=== PATIENT | female | born 1965 | race Caucasian/White ===

== ENCOUNTER 2021-02-13 03:47 | Emergency (ER) | payer MEDICAID ==
--- NOTE | 2021-02-13 03:56 | EDM.PDOC ---
ED HPI GENERAL MEDICAL PROBLEM - General Stated Complaint: POSSIBLE RIGHT FOOT FRACTURE Time Seen by Provider: 02/13/21 03:48 - History of Present Illness INITIAL COMMENTS - FREE TEXT/NARRATIVE: History of present illness: [] Patient tripped over something when she was watering her plants this morning. She injured the right foot and left shoulder. She does not have much pain on range of motion of the left shoulder and does not feel like it significant. She has significant pain in the right foot and was splinted by EMS after 100 mcg of fentanyl were given Review of systems: As per history of present illness and below otherwise all systems reviewed and negative. Past medical history: As per history of present illness and as reviewed below otherwise noncontributory. Surgical history: As per history of present illness and as reviewed below otherwise noncontributory. Social history: No reported history of drug or alcohol abuse. Family history: As per history of present illness and as reviewed below otherwise noncontributory. Physical exam: Constitutional - well developed, well-nourished and in no acute distress HEENT - normocephalic, no evidence of trauma - external nose and mouth normal - no mass in neck and no JVD - mucosae moist EYES - full EOM, PERRL, no icterus - no evidence of inflammation, injection, or drainage Respiratory - no respiratory distress, equal bilateral expansion GI - abdomen soft without distension or organomegaly -s - no guard or rebound Musculoskeletal tenderness and swelling between the ankle and the foot and the medial side of the right lower extremity no gross deformity of long bones or joints - no tenderness, swelling or edema Neurologic - Alert and oriented times four - CN II-XII grossly intact - motor sensory and coordination symmetrically normal Psychiatric - appropriate mood and affect with normal thought content Hematologic - No petechiae or purpura - mucosa appropriate color and sclera not pale - normal nail bed color and refill Integument -bruising on the medial right ankle. No rash or evidence of trauma - normal turgor Diagnostics: [] Therapeutics: [] Impression: [] Plan: [] Definitive disposition and diagnosis as appropriate pending reevaluation and review of above. - Related Data Allergies Allergy/AdvReac Type Severity Reaction Status Date / Time codeine Allergy Itching Verified 10/02/15 03:33 Penicillins Allergy Cannot Verified 10/02/15 03:33 Remember Sulfa (Sulfonamide Allergy Rash Verified 10/02/15 03:33 Antibiotics) Liquid Skin Allergy Swelling Uncoded 10/02/15 03:33 Home Meds: Home Meds Acetaminophen/Caffeine [Excedrin Tension Headache] 1 tab PO ASDIRECTED PRN 09/29/15 [History] Aspirin [Halfprin] 81 mg PO ONETIME 09/29/15 [History] Past Medical History HEENT History: Reports: None Cardiovascular History: Reports: Angina, Hypertension Respiratory History: Reports: None Gastrointestinal History: Reports: GERD Genitourinary History: Reports: None, UTI, Recurrent [employer]IST History: Reports: Musculoskeletal History: Reports: Back Pain, Chronic, Fracture Neurological History: Reports: Concussion, Head Trauma, Migraines Psychiatric History: Reports: Anxiety, Depression, Panic Attack Endocrine/Metabolic History: Reports: None Hematologic History: Reports: None Immunologic History: Reports: None Oncologic (Cancer) History: Reports: None Dermatologic History: Reports: Cellulitis Other Dermatologic History: na - Infectious Disease History Infectious Disease History: Reports: Chicken Pox - Past Surgical History HEENT Surgical History: Reports: Oral Surgery, Tonsillectomy Social & Family History - Family History Family Medical History: No Pertinent Family History ED ROS GENERAL - Review of Systems Review Of Systems: Comprehensive ROS is negative, except as noted in HPI. ED EXAM, GENERAL - Physical Exam Exam: See Below Free Text/Narrative:: My physical exam is in the HPI Course - Vital Signs Text/Narrative:: The patient's x-rays were normal. Is a prescription will be necessary because she needs to reduce the activity so that she does not have a worsening of her sprain. This will be necessary for 2 weeks. Last Recorded V/S: Last Vital Signs Temp 36.2 C 02/13/21 03:59 Pulse 65 02/13/21 03:59 Resp 20 02/13/21 03:59 BP 135/48 L 02/13/21 03:59 Pulse Ox 98 02/13/21 03:59 - Orders/Labs/Meds Orders: Active Orders 24 hr Category Date Time Status DME for Discharge [COMM] Stat Oth 02/13/21 04:36 Ordered Departure - Departure Time of Disposition: 04:38 Disposition: Home, Self-Care 01 Condition: Good Clinical Impression: Right ankle sprain - Discharge Information Instructions: Ankle Sprain, [id number] Additional Instructions: You should immobilize the ankle with the Jimmy wrap until you have painless range of motion. Follow-up with Ortho if you do not obtain painless rate of motion gradually over time. Return if worse. [id number] pain medicine is advised and this could include Tylenol ibuprofen or naproxen. [facility] [address], [address] [place] [address] The following information is given to patients seen in the emergency department who are being discharged to home. This information is to outline your options for follow-up care. We provide all patients seen in our emergency department with a follow-up referral. The need for follow-up, as well as the timing and circumstances, are variable depending upon the specifics of your emergency department visit. If you don't have a primary care physician on staff, we will provide you with a referral. We always advise you to contact your personal physician following an emergency department visit to inform them of the circumstance of the visit and for follow-up with them and/or the need for any referrals to a consulting specialist. The emergency department will also refer you to a specialist when appropriate. This referral assures that you have the opportunity for follow-up care with a specialist. All of these measure are taken in an effort to provide you with optimal care, which includes your follow-up. Under all circumstances we always encourage you to contact your private physician who remains a resource for coordinating your care. When calling for follow-up care, please make the office aware that this follow-up is from your recent emergency room visit. If for any reason you are refused follow-up, please contact the [facility] Emergency Department at and asked to speak to the emergency department charge nurse. Sepsis Event Note (ED) - Focused Exam Vital Signs: Vital Signs Temp Pulse Resp BP Pulse Ox 02/13/21 03:59 36.2 C 65 20 135/48 L 98 - My Orders Last 24 Hours: My Active Orders 02/13/21 04:36 DME for Discharge [COMM] Stat - Assessment/Plan Last 24 Hours: My Active Orders 02/13/21 04:36 DME for Discharge [COMM] Stat
[2021-02-13 04:05] VITALS: BP 135/48; PULSE 65
--- NOTE | 2021-02-13 04:36 | CR ---
INDICATION: Ankle injury, pain TECHNIQUE: Ankle radiograph 3 views right COMPARISON: None FINDINGS: Bone: No acute fractures or aggressive bone lesions are identified. Joint: The ankle mortise joint and the visualized hindfoot joints are unremarkable in appearance. No significant ankle effusion is seen. Soft tissue: The Kager fat pad and the Achilles` tendon is normal in appearance. No radiopaque foreign bodies are seen. IMPRESSION: 1. No acute osseous injuries or abnormalities are noted. Dictated by: Atul Francis MD @ 02/13/2021 04:34:58 (Electronically Signed)
--- NOTE | 2021-02-13 04:36 | CR ---
INDICATION: Foot injury, pain TECHNIQUE: Foot radiograph 3 views right COMPARISON: None FINDINGS: Bone: No acute fractures or aggressive bone lesions are identified. Joint: The visualized hindfoot, midfoot, and forefoot joints are unremarkable in appearance. No significant ankle effusion is seen. Soft tissue: Unremarkable. No radiopaque foreign bodies are seen. IMPRESSION: 1. No acute osseous injuries or abnormalities are noted. Dictated by: Atul Francis MD @ 02/13/2021 04:34:35 (Electronically Signed)
[2021-02-13] MEDS ORDERED: Ketorolac 30 MG/ML SDV IM ONE (04:44)
== END 2021-02-13 05:16 | disposition home or self-care (01) ==
LOC: MW.ED 03:47
DX: S93.401A Sprain of unspecified ligament of right ankle, initial encounter (principal); Z79.82 Long term (current) use of aspirin; Z88.5 Allergy status to narcotic agent; Z88.0 Allergy status to penicillin; Z88.2 Allergy status to sulfonamides; Z91.048 Other nonmedicinal substance allergy status; W01.0XXA Fall on same level from slipping, tripping and stumbling without subsequent striking against object, initial encounter
CPT/HCPCS: 73610; 73630; 96372; 99283; J1885

== ENCOUNTER 2021-06-15 12:10 | Emergency (ER) | payer MEDICAID ==
--- NOTE | 2021-06-15 12:40 | EDM.PDOC ---
ED HPI GENERAL MEDICAL PROBLEM - General Chief Complaint: General Stated Complaint: STOMACH ISSUES FEVER Time Seen by Provider: 06/15/21 12:13 Source of Information: Reports: Patient History Limitations: Reports: No Limitations - History of Present Illness INITIAL COMMENTS - FREE TEXT/NARRATIVE: 55-year-old female presents with generalized weakness, diffuse myalgia, headache, decreased appetite since last Sunday. She states she has been in bed since Sunday night too weak to get out of bed. She does note fevers and chills, nausea, vomiting, abdominal pain, decreased urine output. She denies sore throat, neck pain or stiffness, cough, dysuria or urinary frequency. She denies drug use. ROS: A 10-point review of systems, other than pertinent positives and negatives as stated per HPI, is otherwise negative Past medical history: No additional pertinent history Past Surgical history: No additional pertinent history Social history: No additional pertinent history Family history: No additional pertinent history PHYSICAL EXAM General: AOx4, GCS = 15, mild distress HEENT: dry mucous membrane Neck: supple, no meningismus, no Kernig or Brudzinski Cardiac: S1S2 RRR Respiratory: CTAB, no crackles or rales, no wheezing Abdomen: Soft, right upper quadrant tender, no periumbilical or right lower quadrant or McBurney tenderness rebound or guarding, nondistended, no pulsatile mass. Back: nontender to C/T/L-spine, no bilateral CVAT Musculoskeletal: NVI distally, no deformity Neuro: No focal deficits Generalized Pain Score (Numeric/FACES): 8 - Related Data Allergies Allergy/AdvReac Type Severity Reaction Status Date / Time codeine Allergy Itching Verified 06/15/21 12:25 Penicillins Allergy Cannot Verified 06/15/21 12:25 Remember Sulfa (Sulfonamide Allergy Rash Verified 06/15/21 12:25 Antibiotics) Liquid Skin Allergy Swelling Uncoded 10/02/15 03:33 Home Meds: Home Meds Acetaminophen/Caffeine [Excedrin Tension Headache] 1 tab PO ASDIRECTED PRN 09/29/15 [History] Aspirin [Halfprin] 81 mg PO ONETIME 09/29/15 [History] Acetaminophen/oxyCODONE [Percocet 325-5 MG] 1 each PO Q6H PRN #12 tab 06/15/21 [Rx] Ondansetron [Zofran ODT] 4 mg PO Q6H PRN #12 tab.dis 06/15/21 [Rx] Past Medical History HEENT History: Reports: None Cardiovascular History: Reports: Angina, Hypertension Respiratory History: Reports: None Gastrointestinal History: Reports: GERD Genitourinary History: Reports: None, UTI, Recurrent 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: Musculoskeletal History: Reports: Back Pain, Chronic, Fracture Neurological History: Reports: Concussion, Head Trauma, Migraines Psychiatric History: Reports: Anxiety, Depression, Panic Attack Endocrine/Metabolic History: Reports: None Hematologic History: Reports: None Immunologic History: Reports: None Oncologic (Cancer) History: Reports: None Dermatologic History: Reports: Cellulitis Other Dermatologic History: na - Infectious Disease History Infectious Disease History: Reports: Chicken Pox - Past Surgical History HEENT Surgical History: Reports: Oral Surgery, Tonsillectomy Female Surgical History: Reports: Hysterectomy Social & Family History - Family History Family Medical History: No Pertinent Family History - Tobacco Use Tobacco Use Status *Q: Current Some Day Tobacco User Years of Tobacco use: 30 Packs/Tins Daily: 1 - Caffeine Use Caffeine Use: Reports: Coffee - Recreational Drug Use Recreational Drug Use: No ED ROS GENERAL - Review of Systems Review Of Systems: See Below (see dictation) ED EXAM, GENERAL - Physical Exam Exam: See Below (see dictation) #1 Interpretation EKG Interpretation Comments: Heart rate = 67 bpm, normal sinus rhythm, normal QRS interval, T wave II, III, AVF, V1-V4 (new compared to 2015), no STEMI. EKG and rhythm strip interpreted by me at 1305 Course - Vital Signs Last Recorded V/S: Last Vital Signs Temp 96.9 F 06/15/21 12:21 Pulse 82 06/15/21 17:20 Resp 16 06/15/21 17:20 BP 104/46 L 06/15/21 17:20 Pulse Ox 97 06/15/21 17:20 - Orders/Labs/Meds Orders: Active Orders 24 hr Category Date Time Status Cardiac Monitoring [RC] . DIRECTED Care 06/15/21 12:55 Active Communication Order [RC] STAT Care 06/15/21 14:29 Active Pulse Oximetry [RC] ASDIRECTED Care 06/15/21 12:55 Active NPO [Nothing Per Oral Diet] [DIET] Diet 06/15/21 Dinner Active CULTURE BLOOD [BC] Stat Lab 06/15/21 14:25 Received CULTURE BLOOD [BC] Stat Lab 06/15/21 14:32 Received PROCALCITONIN [REF] Stat Lab 06/15/21 12:55 Ordered Morphine Med 06/15/21 18:13 Once 4 mg IVPUSH ONETIME ONE Ondansetron [Zofran] Med 06/15/21 18:13 Once 4 mg IVPUSH ONETIME ONE Pantoprazole [ProTONIX IV] 40 mg Med 06/15/21 18:13 Ordered Sodium Chloride 0.9% [Normal Saline] 20 ml IVPUSH ONETIME Potassium Chloride Med 06/15/21 18:13 Once 40 meq PO ONETIME ONE Sodium Chloride 0.9% [Saline Flush] Med 06/15/21 12:55 Active 10 ml FLUSH ASDIRECTED PRN Sodium Chloride 0.9% [Saline Flush] Med 06/15/21 12:55 Active 2.5 ml FLUSH ASDIRECTED PRN Blood Culture x2 Reflex Set [OM.PC] Stat Oth 06/15/21 12:56 Ordered Isolation [COMM] Routine Oth 06/15/21 12:56 Active Saline Lock Insert [OM.PC] Stat Oth 06/15/21 12:55 Ordered Medication Orders Sodium Chloride (Sodium Chloride 0.9% 10 Ml Syringe) 10 ml FLUSH ASDIRECTED PRN PRN Reason: Keep Vein Open Last Admin: 06/15/21 14:17 Dose: 10 ml Documented by: RICHELLE Sodium Chloride (Sodium Chloride 0.9% 2.5 Ml Syringe) 2.5 ml FLUSH ASDIRECTED PRN PRN Reason: Keep Vein Open Last Admin: 06/15/21 14:17 Dose: 2.5 ml Documented by: RICHELLE Labs: Laboratory Tests 06/15/21 06/15/21 06/15/21 Range/Units 14:06 14:06 14:06 WBC 5.17 (4.0-11.0) K/uL RBC 4.95 (4.30-5.90) M/uL Hgb 15.3 (12.0-16.0) g/dL Hct 42.6 (36.0-46.0) % MCV 86.1 (80.0-98.0) fL MCH 30.9 (27.0-32.0) pg MCHC 35.9 (31.0-37.0) g/dL RDW Std Deviation 41.3 (28.0-62.0) fl RDW Coeff of Pina 13 (11.0-15.0) % Plt Count 186 (150-400) K/uL MPV 10.60 (7.40-12.00) fL Neut % (Auto) 64.4 (48.0-80.0) % Lymph % (Auto) 26.1 (16.0-40.0) % Sutton % (Auto) 9.5 (0.0-15.0) % Eos % (Auto) 0.0 (0.0-7.0) % Baso % (Auto) 0.0 (0.0-1.5) % Neut # (Auto) 3.3 (1.4-5.7) K/uL Lymph # (Auto) 1.4 (0.6-2.4) K/uL Sutton # (Auto) 0.5 (0.0-0.8) K/uL Eos # (Auto) 0.0 (0.0-0.7) K/uL Baso # (Auto) 0.0 (0.0-0.1) K/uL Nucleated RBC % 0.0 /100WBC Nucleated RBCs # 0 K/uL ESR 36 H (0-29) mm/hr INR Sodium 135 L (136-145) mmol/L Potassium 3.0 L (3.5-5.1) mmol/L Chloride 93 L (98-107) mmol/L Carbon Dioxide 25.4 (21.0-32.0) mmol/L BUN 18 (7.0-18.0) mg/dL Creatinine 0.7 (0.6-1.0) mg/dL Est Cr Clr Drug Dosing 63.49 mL/min Estimated GFR (MDRD) > 60.0 ml/min Glucose 119 H (74-106) mg/dL Lactic Acid (0.4-2.0) mmol/L Calcium 8.3 L (8.5-10.1) mg/dL Phosphorus 2.7 (2.6-4.7) mg/dL Magnesium 2.0 (1.8-2.4) mg/dL Total Bilirubin 0.3 (0.2-1.0) mg/dL AST 30 (15-37) IU/L ALT 28 (14-63) IU/L Alkaline Phosphatase 88 (46-116) U/L Creatine Kinase 115 (26-308) U/L Troponin I < 0.050 (0.000-0.056) ng/mL C-Reactive Protein 9.60 H (0.00-0.90) mg/dL Total Protein 7.2 (6.4-8.2) g/dL Albumin 3.2 L (3.4-5.0) g/dL Globulin 4.0 (2.6-4.0) g/dL Albumin/Globulin Ratio 0.8 L (0.9-1.6) Lipase 53 L (73-393) U/L Urine Color Urine Appearance Urine pH (5.0-8.0) Ur Specific [place] (1.001-1.035) Urine Protein (NEGATIVE) mg/dL Urine Glucose (UA) (NEGATIVE) mg/dL Urine Ketones (NEGATIVE) mg/dL Urine Occult Blood (NEGATIVE) Urine Nitrite (NEGATIVE) Urine Bilirubin (NEGATIVE) Urine Urobilinogen (<2.0) EU/dL Ur Leukocyte Esterase (NEGATIVE) Urine RBC (0-2/HPF) Urine WBC (0-5/HPF) Ur Epithelial Cells (NONE-FEW) Urine Bacteria (NEGATIVE) Urine HCG, Qual (NEGATIVE) Urine Opiates Screen (NEGATIVE) Ur Oxycodone Screen (NEGATIVE) Urine Methadone Screen (NEGATIVE) Ur Barbiturates Screen (NEGATIVE) Ur Phencyclidine Scrn (NEGATIVE) Ur Amphetamine Screen (NEGATIVE) U Methamphetamines Scrn (NEGATIVE) U Benzodiazepines Scrn (NEGATIVE) U Cocaine Metab Screen (NEGATIVE) U Marijuana (THC) Screen (NEGATIVE) 06/15/21 06/15/21 06/15/21 Range/Units 14:25 14:57 15:35 WBC (4.0-11.0) K/uL RBC (4.30-5.90) M/uL Hgb (12.0-16.0) g/dL Hct (36.0-46.0) % MCV (80.0-98.0) fL MCH (27.0-32.0) pg MCHC (31.0-37.0) g/dL RDW Std Deviation (28.0-62.0) fl RDW Coeff of Pina (11.0-15.0) % Plt Count (150-400) K/uL MPV (7.40-12.00) fL Neut % (Auto) (48.0-80.0) % Lymph % (Auto) (16.0-40.0) % Sutton % (Auto) (0.0-15.0) % Eos % (Auto) (0.0-7.0) % Baso % (Auto) (0.0-1.5) % Neut # (Auto) (1.4-5.7) K/uL Lymph # (Auto) (0.6-2.4) K/uL Sutton # (Auto) (0.0-0.8) K/uL Eos # (Auto) (0.0-0.7) K/uL Baso # (Auto) (0.0-0.1) K/uL Nucleated RBC % /100WBC Nucleated RBCs # K/uL ESR (0-29) mm/hr INR 1.06 Sodium (136-145) mmol/L Potassium (3.5-5.1) mmol/L Chloride (98-107) mmol/L Carbon Dioxide (21.0-32.0) mmol/L BUN (7.0-18.0) mg/dL Creatinine (0.6-1.0) mg/dL Est Cr Clr Drug Dosing mL/min Estimated GFR (MDRD) ml/min Glucose (74-106) mg/dL Lactic Acid 1.9 (0.4-2.0) mmol/L Calcium (8.5-10.1) mg/dL Phosphorus (2.6-4.7) mg/dL Magnesium (1.8-2.4) mg/dL Total Bilirubin (0.2-1.0) mg/dL AST (15-37) IU/L ALT (14-63) IU/L Alkaline Phosphatase (46-116) U/L Creatine Kinase (26-308) U/L Troponin I (0.000-0.056) ng/mL C-Reactive Protein (0.00-0.90) mg/dL Total Protein (6.4-8.2) g/dL Albumin (3.4-5.0) g/dL Globulin (2.6-4.0) g/dL Albumin/Globulin Ratio (0.9-1.6) Lipase (73-393) U/L Urine Color YELLOW Urine Appearance CLEAR Urine pH 6.5 (5.0-8.0) Ur Specific [place] 1.010 (1.001-1.035) Urine Protein TRACE H (NEGATIVE) mg/dL Urine Glucose (UA) NEGATIVE (NEGATIVE) mg/dL Urine Ketones >=80 (NEGATIVE) mg/dL Urine Occult Blood MODERATE H (NEGATIVE) Urine Nitrite NEGATIVE (NEGATIVE) Urine Bilirubin NEGATIVE (NEGATIVE) Urine Urobilinogen 0.2 (<2.0) EU/dL Ur Leukocyte Esterase NEGATIVE (NEGATIVE) Urine RBC 1-5 (0-2/HPF) Urine WBC 0-1 (0-5/HPF) Ur Epithelial Cells RARE (NONE-FEW) Urine Bacteria FEW (NEGATIVE) Urine HCG, Qual (NEGATIVE) Urine Opiates Screen (NEGATIVE) Ur Oxycodone Screen (NEGATIVE) Urine Methadone Screen (NEGATIVE) Ur Barbiturates Screen (NEGATIVE) Ur Phencyclidine Scrn (NEGATIVE) Ur Amphetamine Screen (NEGATIVE) U Methamphetamines Scrn (NEGATIVE) U Benzodiazepines Scrn (NEGATIVE) U Cocaine Metab Screen (NEGATIVE) U Marijuana (THC) Screen (NEGATIVE) 06/15/21 06/15/21 Range/Units 15:35 15:35 WBC (4.0-11.0) K/uL RBC (4.30-5.90) M/uL Hgb (12.0-16.0) g/dL Hct (36.0-46.0) % MCV (80.0-98.0) fL MCH (27.0-32.0) pg MCHC (31.0-37.0) g/dL RDW Std Deviation (28.0-62.0) fl RDW Coeff of Pina (11.0-15.0) % Plt Count (150-400) K/uL MPV (7.40-12.00) fL Neut % (Auto) (48.0-80.0) % Lymph % (Auto) (16.0-40.0) % Sutton % (Auto) (0.0-15.0) % Eos % (Auto) (0.0-7.0) % Baso % (Auto) (0.0-1.5) % Neut # (Auto) (1.4-5.7) K/uL Lymph # (Auto) (0.6-2.4) K/uL Sutton # (Auto) (0.0-0.8) K/uL Eos # (Auto) (0.0-0.7) K/uL Baso # (Auto) (0.0-0.1) K/uL Nucleated RBC % /100WBC Nucleated RBCs # K/uL ESR (0-29) mm/hr INR Sodium (136-145) mmol/L Potassium (3.5-5.1) mmol/L Chloride (98-107) mmol/L Carbon Dioxide (21.0-32.0) mmol/L BUN (7.0-18.0) mg/dL Creatinine (0.6-1.0) mg/dL Est Cr Clr Drug Dosing mL/min Estimated GFR (MDRD) ml/min Glucose (74-106) mg/dL Lactic Acid (0.4-2.0) mmol/L Calcium (8.5-10.1) mg/dL Phosphorus (2.6-4.7) mg/dL Magnesium (1.8-2.4) mg/dL Total Bilirubin (0.2-1.0) mg/dL AST (15-37) IU/L ALT (14-63) IU/L Alkaline Phosphatase (46-116) U/L Creatine Kinase (26-308) U/L Troponin I (0.000-0.056) ng/mL C-Reactive Protein (0.00-0.90) mg/dL Total Protein (6.4-8.2) g/dL Albumin (3.4-5.0) g/dL Globulin (2.6-4.0) g/dL Albumin/Globulin Ratio (0.9-1.6) Lipase (73-393) U/L Urine Color Urine Appearance Urine pH (5.0-8.0) Ur Specific [place] (1.001-1.035) Urine Protein (NEGATIVE) mg/dL Urine Glucose (UA) (NEGATIVE) mg/dL Urine Ketones (NEGATIVE) mg/dL Urine Occult Blood (NEGATIVE) Urine Nitrite (NEGATIVE) Urine Bilirubin (NEGATIVE) Urine Urobilinogen (<2.0) EU/dL Ur Leukocyte Esterase (NEGATIVE) Urine RBC (0-2/HPF) Urine WBC (0-5/HPF) Ur Epithelial Cells (NONE-FEW) Urine Bacteria (NEGATIVE) Urine HCG, Qual NEGATIVE (NEGATIVE) Urine Opiates Screen NEGATIVE (NEGATIVE) Ur Oxycodone Screen NEGATIVE (NEGATIVE) Urine Methadone Screen NEGATIVE (NEGATIVE) Ur Barbiturates Screen NEGATIVE (NEGATIVE) Ur Phencyclidine Scrn NEGATIVE (NEGATIVE) Ur Amphetamine Screen NEGATIVE (NEGATIVE) U Methamphetamines Scrn NEGATIVE (NEGATIVE) U Benzodiazepines Scrn NEGATIVE (NEGATIVE) U Cocaine Metab Screen NEGATIVE (NEGATIVE) U Marijuana (THC) Screen POSITIVE (NEGATIVE) Meds: Medications Generic Name Dose Route Start Last Admin Trade Name Freq PRN Reason Stop Dose Admin Sodium Chloride 10 ml 06/15/21 12:55 06/15/21 14:17 Sodium Chloride 0.9% 10 Ml Syringe FLUSH 10 ml ASDIRECTED PRN Administration Keep Vein Open Sodium Chloride 2.5 ml 06/15/21 12:55 06/15/21 14:17 Sodium Chloride 0.9% 2.5 Ml Syringe FLUSH 2.5 ml ASDIRECTED PRN Administration Keep Vein Open Discontinued Medications Generic Name Dose Route Start Last Admin Trade Name Freq PRN Reason Stop Dose Admin Lactated Ringer's 1,000 mls @ 999 mls/hr 06/15/21 12:55 06/15/21 14:05 Ringers, Lactated IV 06/15/21 13:55 999 mls/hr .BOLUS ONE Administration Ketorolac Tromethamine 30 mg 06/15/21 16:17 06/15/21 16:26 Ketorolac 30 Mg/Ml Sdv IVPUSH 06/15/21 16:18 30 mg ONETIME ONE Administration Ondansetron HCl 4 mg 06/15/21 12:55 06/15/21 14:14 Ondansetron 4 Mg/2 Ml Sdv IVPUSH 06/15/21 12:56 4 mg ONETIME ONE Administration Potassium Chloride 40 meq 06/15/21 16:17 06/15/21 16:25 Potassium Chloride 10% 20 Meq/15 Ml Soln 30 Ml Ud Cup PO 06/15/21 16:18 40 meq ONETIME ONE Administration - Re-Assessments/Exams Free Text/Narrative Re-Assessment/Exam: 06/15/21 18:14 Patient reexamined, still exhibiting right upper quadrant tenderness despite ultrasound and MRCP report. Blood work did not demonstrate elevations to T bili and alk phos, Case discussed with Dr. Morales, she recommends outpatient follow- up after pain control in the ED. She wants the patient follow-up of her for outpatient HIDA scan. Patient just vomited her potassium repletion. Will reorder IV Zofran, morphine, Protonix and 40 mEQ KCl PO. Departure - Departure Time of Disposition: 18:57 Disposition: Home, Self-Care 01 Condition: Fair Clinical Impression: Hypokalemia, Abdominal pain, Vomiting - Discharge Information *PRESCRIPTION DRUG MONITORING PROGRAM REVIEWED*: Not Applicable *COPY OF PRESCRIPTION DRUG MONITORING REPORT IN PATIENT CORIE: Not Applicable Prescriptions: Acetaminophen/oxyCODONE [Percocet 325-5 MG] 1 each PO Q6H PRN #12 tab PRN Reason: Pain (Moderate 4-6) Ondansetron [Zofran ODT] 4 mg PO Q6H PRN #12 tab.dis PRN Reason: Vomiting Instructions: Hypokalemia, Abdominal Pain, Adult, [id number] Referrals: Yelena Jean MD [Physician] - 1 Day (For scheduling for outpatient HIDA scan.) Forms: ED Department Discharge Additional Instructions: The need for follow-up, as well as the timing and circumstances, are variable depending upon the specifics of your emergency department visit. If you don't have a primary care physician on staff, we will provide you with a referral. We always advise you to contact your personal physician following an emergency department visit to inform them of the circumstance of the visit and for follow-up with them and/or the need for any referrals to a consulting specialist. The emergency department will also refer you to a specialist when appropriate. This referral assures that you have the opportunity for follow-up care with a specialist. All of these measure are taken in an effort to provide you with optimal care, which includes your follow-up. Under all circumstances we always encourage you to contact your private physician who remains a resource for coordinating your care. When calling for follow-up care, please make the office aware that this follow-up is from your recent emergency room visit. If for any reason you are refused follow-up, please contact the [facility] Emergency Department at and asked to speak to the emergency department charge nurse. Please schedule a follow-up appointment with Dr. Yelena Lin tomorrow. If you do not have a primary care doctor, please follow up with the clinics below within 3-5 days. [facility] [address] [place] [id number] [facility] [address] [place] [id number] Sepsis Event Note (ED) - Focused Exam Vital Signs: Vital Signs Temp Pulse Resp BP Pulse Ox 06/15/21 17:20 82 16 104/46 L 97 06/15/21 16:30 73 18 130/52 L 98 06/15/21 15:23 68 18 117/60 96 06/15/21 14:17 69 117/60 98 06/15/21 12:21 96.9 F 74 18 128/60 97 - My Orders Last 24 Hours: My Active Orders 06/15/21 12:55 Cardiac Monitoring [RC] . DIRECTED Pulse Oximetry [RC] ASDIRECTED PROCALCITONIN [REF] Stat Sodium Chloride 0.9% [Saline Flush] 10 ml FLUSH ASDIRECTED PRN Sodium Chloride 0.9% [Saline Flush] 2.5 ml FLUSH ASDIRECTED PRN Saline Lock Insert [OM.PC] Stat 06/15/21 12:56 Blood Culture x2 Reflex Set [OM.PC] Stat Isolation [COMM] Routine 06/15/21 14:25 CULTURE BLOOD [BC] Stat 06/15/21 14:29 Communication Order [RC] STAT 06/15/21 14:32 CULTURE BLOOD [BC] Stat 06/15/21 Dinner NPO [Nothing Per Oral Diet] [DIET] 06/15/21 18:13 Morphine 4 mg IVPUSH ONETIME ONE Ondansetron [Zofran] 4 mg IVPUSH ONETIME ONE Pantoprazole [ProTONIX IV] 40 mg Sodium Chloride 0.9% [Normal Saline] 20 ml IVPUSH ONETIME Potassium Chloride 40 meq PO ONETIME ONE - Assessment/Plan Last 24 Hours: My Active Orders 06/15/21 12:55 Cardiac Monitoring [RC] . DIRECTED Pulse Oximetry [RC] ASDIRECTED PROCALCITONIN [REF] Stat Sodium Chloride 0.9% [Saline Flush] 10 ml FLUSH ASDIRECTED PRN Sodium Chloride 0.9% [Saline Flush] 2.5 ml FLUSH ASDIRECTED PRN Saline Lock Insert [OM.PC] Stat 06/15/21 12:56 Blood Culture x2 Reflex Set [OM.PC] Stat Isolation [COMM] Routine 06/15/21 14:25 CULTURE BLOOD [BC] Stat 06/15/21 14:29 Communication Order [RC] STAT 06/15/21 14:32 CULTURE BLOOD [BC] Stat 06/15/21 Dinner NPO [Nothing Per Oral Diet] [DIET] 06/15/21 18:13 Morphine 4 mg IVPUSH ONETIME ONE Ondansetron [Zofran] 4 mg IVPUSH ONETIME ONE Pantoprazole [ProTONIX IV] 40 mg Sodium Chloride 0.9% [Normal Saline] 20 ml IVPUSH ONETIME Potassium Chloride 40 meq PO ONETIME ONE
[2021-06-15] MEDS ORDERED: Lactated Ringers 1,000 ML IV ONE (12:55)
[2021-06-15] MEDS ORDERED: Sodium Chloride 0.9% 10 ML Syringe FLUSH PRN (12:55)
[2021-06-15] MEDS ORDERED: Sodium Chloride 0.9% 2.5 ML Syringe FLUSH PRN (12:55)
[2021-06-15] MEDS ORDERED: Ondansetron 4 MG/2 ML SDV IVPUSH ONE ×2 (12:55→18:13)
--- NOTE | 2021-06-15 13:40 | CR ---
INDICATION: Pain. TECHNIQUE: Chest 1 views. COMPARISON: October 03, 2017. FINDINGS: Cardiovascular and mediastinum: Heart size and vasculature are normal in caliber and appearance. Lungs and pleural spaces: Lungs are hyperinflated but otherwise clear. No sign of infiltrate or mass. No sign of pleural effusion. No pneumothorax. Bones and soft tissues: No significant findings. IMPRESSION: No acute findings and no significant changes from the prior exam. Dictated by Wilmer Mann MD @ 06/15/2021 1:39:34 PM (Electronically Signed)
--- NOTE | 2021-06-15 14:13 | US ---
INDICATION: Right upper quadrant pain. COMPARISON: None. TECHNIQUE: Real time abad scale imaging and color Doppler analysis was performed of the right upper quadrant. FINDINGS: Liver: The liver is normal in size measuring 14.6 cm in length. Normal echogenicity. No focal liver lesions. Gallbladder: The gallbladder is mildly distended. No stones or sludge. No wall thickening or pericholecystic fluid. Negative sonographic Gagnon sign. Bile ducts: The common bile duct is mildly dilated measuring up to 7 mm in diameter with tapering to 4 mm distally. Pancreas: Normal where seen. Right kidney: The right kidney measures 10.3 cm in length. No hydronephrosis, calculus, or mass. Vascular: Normal caliber proximal abdominal aorta. The main portal vein is patent with normal hepatopetal flow. IMPRESSION: 1. Mildly distended gallbladder without stones or secondary signs of inflammation. 2. Mild dilation of the common bile duct. A distal obstructing stone cannot be excluded. This could be further evaluated with MRCP if clinically indicated. Dictated by Sima Aparicio MD @ 06/15/2021 2:13:29 PM (Electronically Signed)
[2021-06-15 15:21] LABS: BLOOD UREA NITROGEN,BUN 18 mg/dL (7.0-18.0); CARBON DIOXIDE,CO2 25.4 mmol/L (21.0-32.0); CHLORIDE,CL 93 mmol/L (98-107); GLUCOSE RANDOM 119 mg/dL (74-106); LIPASE 53 U/L (73-393); SODIUM,NA 135 mmol/L (136-145)
[2021-06-15] MEDS ORDERED: Ketorolac 30 MG/ML SDV IVPUSH ONE (16:17)
[2021-06-15] MEDS ORDERED: Potassium Chloride 10% 20 MEQ/15 ML Soln 30 ML UD Cup PO ONE ×2 (16:17→18:13)
--- NOTE | 2021-06-15 16:50 | MR ---
CLINICAL INDICATION: Common bile duct dilatation. COMPARISON: Ultrasound dated 06/15/2021 TECHNIQUE: Routine thin and thick slab MRCP images obtained. FINDINGS: Moderate gallbladder distention measuring up to 4.9 cm. No pericholecystic fluid. No gallstones. No intra or extrahepatic biliary ductal dilatation or filling defects. No biliary strictures. No pancreatic ductal dilatation. No hydronephrosis. No abdominal aortic aneurysm. No pleural effusion or lung bases. Adrenal glands appear unremarkable. No obvious adenopathy. Bone marrow signal appears unremarkable. IMPRESSION: 1. Moderate gallbladder distention. In the absence of right upper quadrant symptoms physiologic distention secondary to fasting as most likely. Correlate with patient`s symptoms and laboratory findings. 2. No intra or extrahepatic biliary ductal dilatation or filling defects. Dictated by Ridge Bloom MD @ 06/15/2021 4:50:08 PM (Electronically Signed)
[2021-06-15] MEDS ORDERED: Morphine 4 MG/ML Syringe IVPUSH ONE (18:13)
[2021-06-15] MEDS ORDERED: Pantoprazole 40 MG in Sodium Chloride 0.9% 20 ML IVPUSH ONE (18:13)
[2021-06-15 21:02] VITALS: BP 102/51; PULSE 86
== END 2021-06-15 21:00 | disposition home or self-care (01) ==
LOC: MW.ED 12:10
DX: R10.11 Right upper quadrant pain (principal); R11.2 Nausea with vomiting, unspecified; E87.6 Hypokalemia; I10 Essential (primary) hypertension; Z72.0 Tobacco use; Z88.5 Allergy status to narcotic agent; Z88.0 Allergy status to penicillin; Z88.2 Allergy status to sulfonamides; Z91.048 Other nonmedicinal substance allergy status; Z79.82 Long term (current) use of aspirin; Z79.899 Other long term (current) drug therapy
CPT/HCPCS: 36415; 71045; 74181; 76705; 80053; 80305; 81001; 81025; 82550; 83605; 83690; 83735; 84100; 84145; 84484; 85025; 85610; 85652; 86140; 87040; 87804; 96374; 96375; 96376; 99285; A9270; C9113; J1885; J2270; J2405; J7120

== ENCOUNTER 2021-06-17 13:20 | Emergency (ER) | payer MEDICAID ==
[2021-06-17] MEDS ORDERED: Sodium Chloride 0.9% 2.5 ML Syringe FLUSH PRN (15:34)
[2021-06-17] MEDS ORDERED: Sodium Chloride 0.9% 10 ML Syringe FLUSH PRN (15:34)
[2021-06-17] MEDS ORDERED: Sodium Chloride 0.9% 1,000 ML IV ONE ×2 (15:34→17:26)
[2021-06-17] MEDS ORDERED: Ondansetron 4 MG/2 ML SDV IVPUSH ONE (15:34)
[2021-06-17] MEDS ORDERED: Morphine 4 MG/ML Syringe IVPUSH ONE (15:36)
--- NOTE | 2021-06-17 16:22 | EDM.PDOC ---
ED HPI GENERAL MEDICAL PROBLEM - General Chief Complaint: Abdominal Pain Stated Complaint: STOMACH ISSUES Time Seen by Provider: 06/17/21 14:49 Source of Information: Reports: Patient History Limitations: Reports: No Limitations - History of Present Illness INITIAL COMMENTS - FREE TEXT/NARRATIVE: HISTORY AND PHYSICAL: History of present illness: The patient is a 55-year-old female with a history of previous emergency room visit on 06/15/2021, who presents to the emergency department with complaints of generalized weakness, headache, decreased appetite, decreased urinary output, constipation, nausea and vomiting along with right upper quadrant pain. The patient states these symptoms started a week ago on Sunday. The patient states that she was in told to follow-up with Dr. Son, general surgeon, for further outpatient work-up on her gallbladder. Review of systems: As per history of present illness and below otherwise all systems reviewed and negative. Past medical history: As per history of present illness and as reviewed below otherwise noncontributory. Surgical history: As per history of present illness and as reviewed below otherwise noncontributor y. Social history: See social history for further information Family history: As per history of present illness and as reviewed below otherwise noncontributory. Physical exam: General: Well developed and very thin. Alert and orientated x 3. Nontoxic in appearance and in no acute distress. Vital signs are stable and have been reviewed by me. Nursing notes were reviewed. HEENT: Atraumatic, normocephalic, pupils equal and reactive bilaterally, negative for conjunctival pallor or scleral icterus, mucous membranes dry, TMs normal bilaterally, throat clear, neck supple, nontender, trachea midline. No drooling or trismus noted. No meningeal signs. No hot potato voice noted. Lungs: Clear to auscultation bilaterally. No wheezes, rales, or rhonchi. Chest nontender. Normal work of breathing, no accessory muscles used. Heart: S1S2, regular rate and rhythm without overt murmur, gallops, or rubs. No JVD. No peripheral edema Abdomen: Soft, nondistended, right upper quad tenderness with a positive Gagnon's sign. Normoactive bowel sounds. Negative for masses or costovertebral tenderness. Skin: Intact, warm, dry. No lesions or rashes noted. Hematologic: No petechiae or purpra. Mucosa appropriate color and normal nail bed color and refill. Extremities: Atraumatic, moves all extremities per self without difficulty or deficits, negative for cords or calf pain. Neurovascular unremarkable. Neuro: Awake, alert, oriented. Cranial nerves II through XII unremarkable. Cerebellum unremarkable. Motor and sensory unremarkable throughout. Exam nonfocal. Psychiatric: Mood and affect are appropriate. Normal thought process. Answering questions appropriately. Notes: *This patient was seen and evaluated during the 2019 SARS-CoV-2 novel coronavirus pandemic period. Community viral transmission is ongoing at time of this encounter and the emergency department is operating under pandemic response procedures. As stated above the patient is a 55-year-old female who presents to the emergency room with continuing complaints of right upper quad pain, generalized weakness, headache, decreased appetite, decreased urinary output foot, constipation, nausea and vomiting that started a week ago Sunday. She was seen in the emergency department on 06/15/[address] Meraz. The patient had an ultrasound of the abdomen pelvis with an impression of 1. Mildly distended gallbladder without stones or secondary signs of inflammation. 2. Mild dilation of the common bile duct. A distal obstructing stone cannot be excluded. This could be further evaluated with MRCP if clinically indicated. The patient was informed to follow-up with Dr. Son, general surgeon, for an outpatient HIDA scan. The patient informed me that Dr. Son told her to present to the emergency room as she did not have time to see her in clinic to push through earlier surgeon. I spoke with Dr. Son regarding the patient's comments. Dr. Son stated that the patient was upset when she called her clinic earlier to make an appointment and was told that Dr. Son cannot see her until Sunday. The patient then became further upset when she was told that she would probably not have surgery for at least 2 weeks. In the patient stated that she has a diabetic dog at home and cannot be lying in bed with this pain. The patient states that she was prescribed hydrocodone and just does not tolerate this knocks her out. Dr. Son suggested a abdominal work-up and follow up with the on-call surgeon Dr. Melvin. Abdomen/pelvis CT Impression: Trace medullary nephrocalcinosis without evidence of obstructive calculus. Moderate stool seen throughout the colon with minimal distal colonic diverticulosis without obvious pericolonic inflammation. Otherwise, no definite acute intra-abdominal abnormalities appreciated. For the patient of her negative CBC and negative CT scan. The patient oral mucosa is dry and she is asking for something to drink. I will give the patient another liter of fluids and attempt oral fluids. The patient's CBC is unremarkable. The patient's CMP is remarkable for a sodium level of 134, potassium 3.2 for which I treated her with 20 mEq of oral potassium. Chloride of 94. And her lipase is 96. The patient has been sleeping peacefully as her second liter of fluids infused. She has been taking oral hydration as well. The patient states that she still has some mild discomfort for which I will treat with oral tramadol. I have explained the patient the test results and the need for the patient to continue to keep her appointment with Dr. Meng as none of these are emergent. The patient states that she feels somewhat better and is willing to go home. I instructed the patient on when to return to the immediate emergency room for symptoms. I have talked with the patient about today's findings, in addition to providing specific details for plan of care. Reassessment at the time of disposition demonstrates that the patient is in no acute distress. The patient is stable for discharge, counseling was provided and we discussed in great detail signs and symptoms that would prompt them to return to the Emergency Department. Medication, follow up and supportive care measures were reviewed and discussed. Voices understanding and is agreeable to plan of care. Denies any further questions or concerns at this time. Diagnostics: CBC, CMP, lipase, CT abdomen/pelvis Therapeutics: Fluids, morphine, Zofran Prescription: Tramadol 50 mg p.o. every 6 hours as needed for pain #12 Impression: Abdominal pain Plan: 1. You were evaluated today on an emergent basis. Your CBC was within normal limits. Your potassium was a little low at 3.0 for which I am giving you an oral potassium four. You need to follow-up with your primary care regarding this. Your other blood work was otherwise normal. Your CT of your abdomen and pelvis did not show anything acute requiring surgery at this time. You need to follow-up with Dr. Galeana in the office on Sunday. I will prescribe tramadol and suggest you use half a tab as this might help your pain and not knock you out. 2. You can alternate Tylenol and ibuprofen as needed for pain and fever management. 3. We encourage you to follow up with your primary care provider and/or recommended specialist in the next few days for re-evaluation and further care/management. 4. If your symptoms should worsen, new symptoms develop or any of the signs and symptoms we discussed should arise please return to the emergency room or call [phone] (if needed). Definitive disposition and diagnosis as appropriate pending reevaluation and review of above. Right Abdomen Pain Score (Numeric/FACES): 10 - Related Data Allergies Allergy/AdvReac Type Severity Reaction Status Date / Time codeine Allergy Itching Verified 06/17/21 14:28 Penicillins Allergy Cannot Verified 06/17/21 14:28 Remember Sulfa (Sulfonamide Allergy Rash Verified 06/17/21 14:28 Antibiotics) Liquid Skin Allergy Swelling Uncoded 06/17/21 14:28 Home Meds: Home Meds Acetaminophen/Caffeine [Excedrin Tension Headache] 1 tab PO ASDIRECTED PRN 09/29/15 [History] Aspirin [Halfprin] 81 mg PO ONETIME 09/29/15 [History] Acetaminophen/oxyCODONE [Percocet 325-5 MG] 1 each PO Q6H PRN #12 tab 06/15/21 [Rx] Ondansetron [Zofran ODT] 4 mg PO Q6H PRN #12 tab.dis 06/15/21 [Rx] traMADol [Ultram] 50 mg PO Q6H PRN #12 tab 06/17/21 [Rx] Past Medical History HEENT History: Reports: None Cardiovascular History: Reports: Angina, Hypertension Respiratory History: Reports: None Gastrointestinal History: Reports: GERD Genitourinary History: Reports: None, UTI, Recurrent 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: Musculoskeletal History: Reports: Back Pain, Chronic, Fracture Neurological History: Reports: Concussion, Head Trauma, Migraines Psychiatric History: Reports: Anxiety, Depression, Panic Attack Endocrine/Metabolic History: Reports: None Hematologic History: Reports: None Immunologic History: Reports: None Oncologic (Cancer) History: Reports: None Dermatologic History: Reports: Cellulitis Other Dermatologic History: na - Infectious Disease History Infectious Disease History: Reports: Chicken Pox - Past Surgical History HEENT Surgical History: Reports: Oral Surgery, Tonsillectomy Female Surgical History: Reports: Hysterectomy Social & Family History - Family History Family Medical History: No Pertinent Family History - Tobacco Use Tobacco Use Status *Q: Current Every Day Tobacco User Years of Tobacco use: 30 Packs/Tins Daily: 1 - Caffeine Use Caffeine Use: Reports: Coffee - Recreational Drug Use Recreational Drug Use: Yes Recreational Drug Type: Reports: Marijuana/Hashish ED ROS GENERAL - Review of Systems Review Of Systems: Comprehensive ROS is negative, except as noted in HPI. ED EXAM, GI/ABD - Physical Exam Exam: See Below (See dictation) Course - Vital Signs Last Recorded V/S: Last Vital Signs Temp 98.8 F 06/17/21 17:47 Pulse 67 06/17/21 17:47 Resp 14 06/17/21 17:47 BP 133/57 L 06/17/21 17:47 Pulse Ox 97 06/17/21 17:47 - Orders/Labs/Meds Labs: Laboratory Tests 06/17/21 06/17/21 06/17/21 Range/Units 15:58 15:58 15:58 WBC 4.39 (4.0-11.0) K/uL RBC 4.90 (4.30-5.90) M/uL Hgb 15.0 (12.0-16.0) g/dL Hct 42.5 (36.0-46.0) % MCV 86.7 (80.0-98.0) fL MCH 30.6 (27.0-32.0) pg MCHC 35.3 (31.0-37.0) g/dL RDW Std Deviation 41.9 (28.0-62.0) fl RDW Coeff of Pina 13 (11.0-15.0) % Plt Count 257 (150-400) K/uL MPV 9.80 (7.40-12.00) fL Neut % (Auto) 48.3 (48.0-80.0) % Lymph % (Auto) 38.7 (16.0-40.0) % [place] % (Auto) 12.5 (0.0-15.0) % Eos % (Auto) 0.0 (0.0-7.0) % Baso % (Auto) 0.5 (0.0-1.5) % Neut # (Auto) 2.1 (1.4-5.7) K/uL Lymph # (Auto) 1.7 (0.6-2.4) K/uL [place] # (Auto) 0.6 (0.0-0.8) K/uL Eos # (Auto) 0.0 (0.0-0.7) K/uL Baso # (Auto) 0.0 (0.0-0.1) K/uL Nucleated RBC % 0.0 /100WBC Nucleated RBCs # 0 K/uL Sodium 134 L (136-145) mmol/L Potassium 3.2 L (3.5-5.1) mmol/L Chloride 94 L (98-107) mmol/L Carbon Dioxide 26.4 (21.0-32.0) mmol/L BUN 16 (7.0-18.0) mg/dL Creatinine 0.8 (0.6-1.0) mg/dL Est Cr Clr Drug Dosing 52.78 mL/min Estimated GFR (MDRD) > 60.0 ml/min Glucose 98 (74-106) mg/dL Calcium 8.5 (8.5-10.1) mg/dL Total Bilirubin 0.3 (0.2-1.0) mg/dL AST 32 (15-37) IU/L ALT 28 (14-63) IU/L Alkaline Phosphatase 86 (46-116) U/L Total Protein 7.7 (6.4-8.2) g/dL Albumin 3.4 (3.4-5.0) g/dL Globulin 4.3 H (2.6-4.0) g/dL Albumin/Globulin Ratio 0.8 L (0.9-1.6) Lipase 96 (73-393) U/L Meds: Medications Discontinued Medications Generic Name Dose Route Start Last Admin Trade Name Misaelq PRN Reason Stop Dose Admin Sodium Chloride 1,000 mls @ 999 mls/hr 06/17/21 15:34 06/17/21 16:11 Normal Saline IV 06/17/21 16:34 999 mls/hr BOLUS ONE Administration Sodium Chloride 1,000 mls @ 999 mls/hr 06/17/21 17:26 06/17/21 17:34 Normal Saline IV 06/17/21 18:26 999 mls/hr .BOLUS ONE Administration Morphine Sulfate 4 mg 06/17/21 15:36 06/17/21 16:11 Morphine 4 Mg/Ml Syringe IVPUSH 06/17/21 15:37 4 mg ONETIME ONE Administration Ondansetron HCl 4 mg 06/17/21 15:34 06/17/21 16:11 Ondansetron 4 Mg/2 Ml Sdv IVPUSH 06/17/21 15:35 4 mg ONETIME ONE Administration Potassium Chloride 20 meq 06/17/21 19:39 Potassium Chloride 10% 20 Meq/15 Ml Soln 15 Ml Ud Cup PO 06/17/21 19:40 ONETIME ONE Sodium Chloride 2.5 ml 06/17/21 15:34 06/17/21 16:12 Sodium Chloride 0.9% 2.5 Ml Syringe FLUSH 2.5 ml ASDIRECTED PRN Administration Keep Vein Open Sodium Chloride 10 ml 06/17/21 15:34 06/17/21 16:12 Sodium Chloride 0.9% 10 Ml Syringe FLUSH 10 ml ASDIRECTED PRN Administration Keep Vein Open Tramadol HCl 50 mg 06/17/21 19:52 Tramadol 50 Mg Tab PO 06/17/21 19:53 ONETIME ONE Departure - Departure Time of Disposition: 19:53 Disposition: Home, Self-Care 01 Condition: Good Clinical Impression: Abdominal pain Qualifiers: Abdominal location: generalized Qualified Code(s): R10.84 - Generalized abdominal pain - Discharge Information *PRESCRIPTION DRUG MONITORING PROGRAM REVIEWED*: Not Applicable *COPY OF PRESCRIPTION DRUG MONITORING REPORT IN PATIENT CORIE: Not Applicable Prescriptions: traMADol [Ultram] 50 mg PO Q6H PRN #12 tab PRN Reason: Abdominal Pain Instructions: Abdominal Pain, Adult, [id number] Referrals: PCP,None [Primary Care Provider] - Forms: ED Department Discharge Additional Instructions: The following information is given to patients seen in the emergency department who are being discharged to home. This information is to outline your options for follow-up care. We provide all patients seen in our emergency department with a follow-up referral. The need for follow-up, as well as the timing and circumstances, are variable depending upon the specifics of your emergency department visit. If you don't have a primary care physician on staff, we will provide you with a referral. We always advise you to contact your personal physician following an emergency department visit to inform them of the circumstance of the visit and for follow-up with them and/or the need for any referrals to a consulting specialist. The emergency department will also refer you to a specialist when appropriate. This referral assures that you have the opportunity for follow-up care with a specialist. All of these measure are taken in an effort to provide you with optimal care, which includes your follow-up. Under all circumstances we always encourage you to contact your private physician who remains a resource for coordinating your care. When calling for follow-up care, please make the office aware that this follow-up is from your recent emergency room visit. If for any reason you are refused follow-up, please contact the [facility] Emergency Department at and asked to speak to the emergency department charge nurse. [facility] [address] [place] [id number] [address] Plan: 1. You were evaluated today on an emergent basis. Your CBC was within normal limits. Your potassium was a little low at 3.0 for which I am giving you an oral potassium four. You need to follow-up with your primary care regarding this. Your other blood work was otherwise normal. Your CT of your abdomen and pelvis did not show anything acute requiring surgery at this time. You need to follow-up with Dr. Galeana in the office on Sunday. I will prescribe tramadol and suggest you use half a tab as this might help your pain and not knock you out. 2. You can alternate Tylenol and ibuprofen as needed for pain and fever management. 3. We encourage you to follow up with your primary care provider and/or recommended specialist in the next few days for re-evaluation and further care/management. 4. If your symptoms should worsen, new symptoms develop or any of the signs and symptoms we discussed should arise please return to the emergency room or call [phone] (if needed).
--- NOTE | 2021-06-17 16:44 | CT ---
Indication: Abdominal pain Technique: Volumetric multidetector CT images of the abdomen and pelvis were without the administration of intravenous contrast. Comparison: Ultrasound abdomen June 15, 2021 Findings: The lung bases are clear. The liver is normal in attenuation without intrahepatic biliary ductal dilatation. The gallbladder is unremarkable without evidence of radiopaque calculus. There is no significant common biliary ductal dilatation or abrupt cut off. The spleen is normal in attenuation and size. The stomach and duodenum are grossly unremarkable. The pancreas is normal in attenuation without significant atrophy. The adrenal glands are unremarkable. There is mild medullary nephrocalcinosis of the bilateral collecting systems without evidence of distal obstructing calculus. There is a moderate diffuse amount of stool seen throughout the colon. There is minimal distal colonic diverticulosis without definite evidence of diverticulitis. The appendix is not well visualized. There is no significant mesenteric, retroperitoneal, or pelvic sidewall lymph nodes. The aorta is non aneurysmal with moderate scattered atherosclerotic calcifications. There is prior hysterectomy. Otherwise the pelvic viscera are grossly unremarkable. There is no free fluid or free air. The anterior abdominal wall is intact without significant hernias. The lumbar vertebral body heights are grossly maintained with mild degenerative disc disease and facet arthrosis. Impression: Trace medullary nephrocalcinosis without evidence of obstructive calculus. Moderate stool seen throughout the colon with minimal distal colonic diverticulosis without obvious pericolonic inflammation. Otherwise, no definite acute intra-abdominal abnormalities appreciated. Please note that all CT scans at this facility use dose modulation, iterative reconstruction, and/or weight-based dosing when appropriate to reduce radiation dose to as low as reasonably achievable. Dictated by Fabrizio Jose MD @ 06/17/2021 4:43:10 PM (Electronically Signed)
[2021-06-17 17:47] VITALS: BP 133/57; PULSE 67
[2021-06-17 19:09] LABS: BLOOD UREA NITROGEN,BUN 16 mg/dL (7.0-18.0); CARBON DIOXIDE,CO2 26.4 mmol/L (21.0-32.0); CHLORIDE,CL 94 mmol/L (98-107); GLUCOSE RANDOM 98 mg/dL (74-106); POTASSIUM,K 3.2 mmol/L (3.5-5.1); SODIUM,NA 134 mmol/L (136-145)
[2021-06-17] MEDS ORDERED: Potassium Chloride 10% 20 MEQ/15 ML Soln 15 ML UD Cup PO ONE (19:39)
[2021-06-17] MEDS ORDERED: traMADol 50 MG Tab PO ONE (19:52)
== END 2021-06-17 20:21 | disposition home or self-care (01) ==
LOC: MW.ED 13:20
DX: R10.84 Generalized abdominal pain (principal); R10.11 Right upper quadrant pain; I10 Essential (primary) hypertension; Z72.0 Tobacco use; Z88.5 Allergy status to narcotic agent; Z88.0 Allergy status to penicillin; Z88.2 Allergy status to sulfonamides; Z91.048 Other nonmedicinal substance allergy status; Z79.82 Long term (current) use of aspirin; Z79.899 Other long term (current) drug therapy
CPT/HCPCS: 36415; 74176; 80053; 83690; 85025; 96374; 96375; 99284; J2270; J2405; J7030